=== PATIENT | male | born 1990 | race Two or more races ===

== ENCOUNTER 2022-09-07 10:54 | Inpatient (IN) | payer BC, MEDICAID ==
[2022-09-07] VITALS (22 sets, daily range): BP systolic 42–252; BP diastolic 24–183
[~2022-09-07] VITALS: Ht 177.8 cm; Wt 186.0 kg
[2022-09-07] MEDS ORDERED: VANCOMYCIN 1G PREMIX 200 ML IV ONE (11:30)
[2022-09-07] MEDS ORDERED: MIDAZOLAM HCL 100 MG in DEXT 5% WATER 80 ML IV ONE (11:30)
[2022-09-07] MEDS ORDERED: MIDAZOLAM HCL 2 MG/2 ML VIAL IV ONE (11:30)
[2022-09-07] MEDS ORDERED: SODIUM CHLORIDE 0.9% 1000ML BAG (SEPSIS BOLUS) IV ONE (11:30)
[2022-09-07] MEDS ORDERED: PIPERACILLIN/TAZ 3.375G PREMIX 50 ML IV ONE (11:30)
[2022-09-07 11:40] LABS: CHLORIDE 98 mEq/L (98-107)
[2022-09-07] MEDS ORDERED: MIDAZOLAM HCL 100 MG in SODIUM CHLORIDE 0.9% 80 ML IV PRN (11:45)
[2022-09-07 11:47] LABS: ETHANOL BLOOD 95 mg/dL
[2022-09-07 11:50] LABS: BG BASE EXCESS -14.2 mmol/L (-2.0-2.0); BG CARBOXYHEMOGLOBIN 0.7 % (0.5-1.5); BG DEOXYHEMOGLOBIN 7.2 % (0.0-5.0); BG FRACTION INSPIRED OXYGEN 100; BG HCO3 ACT 21.4 mmol/L (22.0-26.0); BG METHEMOGLOBIN 0.8 % (0.0-1.5); BG OXYGEN SATURATION 92.7 % (92.0-98.5); BG OXYHEMOGLOBIN 91.3 % (94.0-97.0); BG PCO2 96.4 mmHg (35.0-45.0); BG PH 6.964 (7.350-7.450); BG PO2 88.3 mmHg (75.0-100.0); BG SAMPLE SITE RIGHT BRACHIAL; BG VENT MODE VENT - AC
[2022-09-07 11:58] LABS: COLOR URINE YELLOW (YELLOW)
[2022-09-07 11:59] LABS: *AMPHETAMINES SCREEN URINE NEGATIVE (NEGATIVE); *BARBITURATES SCREEN URINE NEGATIVE (NEGATIVE); *BENZODIAZEPINES SCREEN URINE NEGATIVE (NEGATIVE); *COCAINE SCREEN URINE NEGATIVE (NEGATIVE); CANNABINOID URINE SCREEN PRESUMTIVE POSITIVE (NEGATIVE); CLARITY URINE CLEAR (CLEAR); KETONES URINE NEGATIVE (NEGATIVE); METHADONE URINE SCREEN NEGATIVE (NEGATIVE); OPIATES URINE SCREEN NEGATIVE (NEGATIVE); PHENCYCLIDINE URINE SCREEN NEGATIVE (NEGATIVE); PROTEIN URINE 3+ (NEGATIVE)
[2022-09-07 12:00] LABS: LEUKOCYTE ESTERASE URINE 1+ (NEGATIVE); NITRITE URINE NEGATIVE (NEGATIVE); OCCULT BLOOD URINE 1+ (NEGATIVE); UROBILINOGEN URINE 0.2 E.U./dL (0.2-1.0)
[2022-09-07 12:16] LABS: BASOPHILS % 0.1 % (0.0-2.0); EOSINOPHILS % 0.1 % (0.0-5.0); LYMPHOCYTES % 9.6 % (20.0-50.0); MEAN CORPUSCULAR VOLUME 89.7 fL (80.0-94.0); MONOCYTES % 3.2 % (2.0-8.0); RED CELL DISTRIBUTION WIDTH 18.7 % (11.6-14.6)
[2022-09-07 12:25] LABS: HEMATOCRIT. 66.4 % (42.0-52.0)
[2022-09-07] MEDS ORDERED: ONDANSETRON HCL 4MG/2ML INJ IV PRN (12:30)
[2022-09-07] MEDS ORDERED: ACETAMINOPHEN 325MG TABLET PO PRN (12:30)
[2022-09-07] MEDS ORDERED: SODIUM CHLORIDE 0.9% 1,000 ML IV SCH (12:30)
[2022-09-07 12:40] LABS: PROTHROMBIN TIME 11.2 sec (9.6-11.0)
[2022-09-07 12:56] LABS: MEAN PLATELET VOLUME 8.8 fl (7.4-10.4); PLATELET 197 x1000/uL (130-400)
[2022-09-07] MEDS ORDERED: PROPOFOL 10MG/ML 100ML 100 ML IV PRN (13:45)
[2022-09-07] MEDS ORDERED: NOREPINEPHRINE 32 MG in DEXT 5% WATER 218 ML IV PRN (14:15)
[2022-09-07 14:55] LABS: CREATINE KINASE 1444 IU/L (39-308)
[2022-09-07] MEDS: NOREPINEPHRINE 32 MG in DEXT 5% WATER 218 ML IV PRN (15:10)
[2022-09-07] MEDS: FENTANYL 2500MCG/250ML PMX 250 ML IV PRN (15:13)
[2022-09-07 16:08] LABS: BG BASE EXCESS -11.2 mmol/L (-2.0-2.0); BG CARBOXYHEMOGLOBIN 1.1 % (0.5-1.5); BG DEOXYHEMOGLOBIN 23.6 % (0.0-5.0); BG FRACTION INSPIRED OXYGEN 100; BG HCO3 ACT 17.1 mmol/L (22.0-26.0); BG METHEMOGLOBIN 0.4 % (0.0-1.5); BG OXYHEMOGLOBIN 74.9 % (94.0-97.0); BG PCO2 46.3 mmHg (35.0-45.0); BG PH 7.185 (7.350-7.450); BG PO2 56.5 mmHg (75.0-100.0); BG SAMPLE SITE LEFT FEMORAL; BG TOTAL HEMOGLOBIN 22.3 g/dL (12.0-18.0); BG VENT MODE VENT - AC
[2022-09-07] MEDS ORDERED: SODIUM BICARBONATE 8.4% 1 MEQ/ML 50ML SYR IV NR ×2 (17:30→20:45)
[2022-09-07] MEDS ORDERED: EPINEPHRINE 10 MG in SODIUM CHLORIDE 0.9% 240 ML IV PRN (17:30)
[2022-09-07] MEDS ORDERED: IPRATROPIUM/ALBUTEROL 0.5-3(2.5)MG/3ML NEB HHN SCH (18:00)
[2022-09-07] MEDS ORDERED: PIPERACILLIN/TAZOBACTAM 3.375 G in DEXTROSE 5% WATER 50 ML IV SCH (18:00)
[2022-09-07 18:26] LABS: BASOPHILS % 0.2 % (0.0-2.0); EOSINOPHILS % 0.1 % (0.0-5.0); HEMOGLOBIN. 20.2 g/dL (14.0-18.0); LYMPHOCYTES % 12.2 % (20.0-50.0); MEAN CORPUSCULAR HEMOGLOBIN 26.7 pg (28.0-32.0); MEAN CORPUSCULAR VOLUME 89.6 fL (80.0-94.0); MONOCYTES % 5.5 % (2.0-8.0); RED BLOOD CELL COUNT 7.59 mill/uL (4.7-6.1); RED CELL DISTRIBUTION WIDTH 18.1 % (11.6-14.6)
[2022-09-07 18:36] LABS: CHLORIDE 102 mEq/L (98-107)
[2022-09-07 18:39] LABS: HEMATOCRIT. 67.9 % (42.0-52.0)
[2022-09-07 19:09] LABS: BG BASE EXCESS -7.9 mmol/L (-2.0-2.0); BG CARBOXYHEMOGLOBIN 0.6 % (0.5-1.5); BG DEOXYHEMOGLOBIN 9.3 % (0.0-5.0); BG FRACTION INSPIRED OXYGEN 100; BG HCO3 ACT 20.3 mmol/L (22.0-26.0); BG METHEMOGLOBIN 0.6 % (0.0-1.5); BG OXYGEN SATURATION 90.6 % (92.0-98.5); BG OXYHEMOGLOBIN 89.5 % (94.0-97.0); BG PCO2 50.6 mmHg (35.0-45.0); BG PH 7.222 (7.350-7.450); BG SAMPLE SITE RIGHT BRACHIAL; BG TOTAL HEMOGLOBIN 22.4 g/dL (12.0-18.0); BG VENT MODE VENT - AC
[2022-09-07] MEDS: IPRATROPIUM/ALBUTEROL 0.5-3(2.5)MG/3ML NEB HHN SCH (20:31)
[2022-09-07] MEDS ORDERED: INSULIN REGULAR (HUMULIN R) 300UNITS/3ML VIAL IV NR (20:45)
[2022-09-07] MEDS ORDERED: DEXTROSE 50% WATER 50ML SYRINGE IV NR (20:45)
[2022-09-07] MEDS ORDERED: CALCIUM CHLORIDE 1,000 MG in DEXT 5% WATER 90 ML IV NR (20:45)
[2022-09-07 20:46] LABS: MEAN PLATELET VOLUME 9.2 fl (7.4-10.4); PLATELET 152 x1000/uL (130-400)
[2022-09-07] MEDS: PIPERACILLIN/TAZOBACTAM 3.375 G in DEXTROSE 5% WATER 50 ML IV SCH (21:32)
[2022-09-07] MEDS: ACETAMINOPHEN 650MG SUPP PR PRN (21:34)
[2022-09-07] MEDS: DEXT 5%/0.9% NACL 1,000 ML IV SCH (22:51)
[2022-09-08] VITALS (64 sets, daily range): BP systolic 118–178; BP diastolic 56–121
[2022-09-08] MEDS: IPRATROPIUM/ALBUTEROL 0.5-3(2.5)MG/3ML NEB HHN SCH ×6 (00:21→20:45)
[2022-09-08] MEDS ORDERED: SODIUM BICARBONATE 8.4% 1 MEQ/ML 50ML SYR IV NR (03:45)
[2022-09-08] MEDS ORDERED: CALCIUM CHLORIDE 1,000 MG in DEXT 5% WATER 90 ML IV NR (05:00)
[2022-09-08 06:05] LABS: HEMOGLOBIN. 19.7 g/dL (14.0-18.0); MEAN CORPUSCULAR HEMOGLOBIN 27.1 pg (28.0-32.0); MEAN PLATELET VOLUME 9.4 fl (7.4-10.4); PLATELET 109 x1000/uL (130-400); RED BLOOD CELL COUNT 7.26 mill/uL (4.7-6.1); RED CELL DISTRIBUTION WIDTH 18.1 % (11.6-14.6)
[2022-09-08 06:11] LABS: CHLORIDE 100 mEq/L (98-107)
[2022-09-08 06:22] LABS: HEMATOCRIT. 62.4 % (42.0-52.0)
[2022-09-08] MEDS: PIPERACILLIN/TAZOBACTAM 3.375 G in DEXTROSE 5% WATER 50 ML IV SCH ×3 (06:40→22:13)
[2022-09-08] MEDS: NOREPINEPHRINE 32 MG in DEXT 5% WATER 218 ML IV PRN (06:42)
[2022-09-08 09:37] LABS: BG BASE EXCESS -3.3 mmol/L (-2.0-2.0); BG CARBOXYHEMOGLOBIN 0.3 % (0.5-1.5); BG DEOXYHEMOGLOBIN 3.1 % (0.0-5.0); BG FRACTION INSPIRED OXYGEN 100; BG HCO3 ACT 23.2 mmol/L (22.0-26.0); BG METHEMOGLOBIN 0.7 % (0.0-1.5); BG OXYGEN SATURATION 96.9 % (92.0-98.5); BG OXYHEMOGLOBIN 95.9 % (94.0-97.0); BG SAMPLE SITE RIGHT RADIAL; BG TOTAL HEMOGLOBIN 21.5 g/dL (12.0-18.0); BG VENT MODE VENT - AC
[2022-09-08] MEDS: THIAMINE HCL 100MG TABLET PO SCH (09:51)
[2022-09-08] MEDS: PANTOPRAZOLE SODIUM 40 MG/VIAL IV SCH (09:51)
[2022-09-08] MEDS: FOLIC ACID 1MG TABLET PO SCH (09:52)
[2022-09-08] MEDS: DEXT 5%/0.9% NACL 1,000 ML IV SCH ×3 (09:52→23:29)
[2022-09-08] MEDS: MULTIVITAMINS,THER W-MINERALS TABLET PO SCH (09:52)
[2022-09-08] MEDS ORDERED: BENA-8 MT (09:55)
[2022-09-08 10:04] LABS: PLATELET ESTIMATE DECREASED
[2022-09-08] MEDS: AMLODIPINE 10MG TABLET PO SCH (11:34)
[2022-09-08] MEDS ORDERED: VANCOMYCIN 2,000 MG in DEXT 5% WATER 500 ML IV NR (12:00)
[2022-09-08] MEDS ORDERED: LIDOCAINE HCL/PF 1% 10 MG/ML 5ML VIAL ONE (13:00)
[2022-09-08] MEDS ORDERED: HEPARIN 1000 UNITS/ML 10ML ONE (13:01)
[2022-09-08 13:14] LABS: FIBRINOGEN 582 mg/dL (200-400)
[2022-09-08] MEDS: LACTULOSE 20G/30ML UDC PO SCH ×2 (13:21→22:13)
[2022-09-08 13:30] LABS: PHOSPHORUS 5.3 mg/dL (2.5-4.9)
[2022-09-08 13:50] LABS: HEPATITIS B SURFACE ANTIGEN NEGATIVE
[2022-09-08 15:37] LABS: D-DIMER > 35.20 mg/L FEU (<0.50)
[2022-09-08] MEDS: ENOXAPARIN 150MG/ML SYR SUBCUT SCH (17:21)
[2022-09-08] MEDS: ACETAMINOPHEN 650MG SUPP PR PRN (20:45)
[2022-09-08] MEDS: FENTANYL 2500MCG/250ML PMX 250 ML IV PRN (23:23)
[2022-09-09] VITALS (51 sets, daily range): BP systolic 125–187; BP diastolic 60–170
[2022-09-09] MEDS: IPRATROPIUM/ALBUTEROL 0.5-3(2.5)MG/3ML NEB HHN SCH ×6 (00:46→20:26)
[2022-09-09] MEDS: ACETAMINOPHEN 650MG SUPP PR PRN (03:32)
[2022-09-09 05:36] LABS: BASOPHILS % 0.2 % (0.0-2.0); EOSINOPHILS % 0.1 % (0.0-5.0); HEMATOCRIT. 58.2 % (42.0-52.0); HEMOGLOBIN. 18.4 g/dL (14.0-18.0); LYMPHOCYTES % 7.2 % (20.0-50.0); MEAN CORPUSCULAR HEMOGLOBIN 27.1 pg (28.0-32.0); MEAN CORPUSCULAR VOLUME 85.6 fL (80.0-94.0); MONOCYTES % 2.9 % (2.0-8.0); NEUTROPHILS % 89.6 % (40.0-76.0); PLATELET 73 x1000/uL (130-400); RED CELL DISTRIBUTION WIDTH 17.6 % (11.6-14.6)
[2022-09-09] MEDS: PIPERACILLIN/TAZOBACTAM 3.375 G in DEXTROSE 5% WATER 50 ML IV SCH ×3 (06:03→22:43)
[2022-09-09] MEDS: LACTULOSE 20G/30ML UDC PO SCH ×3 (06:03→22:43)
[2022-09-09 06:04] LABS: CHLORIDE 102 mEq/L (98-107)
[2022-09-09 06:11] LABS: PHOSPHORUS 5.6 mg/dL (2.5-4.9)
[2022-09-09 08:07] LABS: BG BASE EXCESS -1.7 mmol/L (-2.0-2.0); BG CARBOXYHEMOGLOBIN 0.3 % (0.5-1.5); BG DEOXYHEMOGLOBIN 9.9 % (0.0-5.0); BG FRACTION INSPIRED OXYGEN 100; BG METHEMOGLOBIN 0.4 % (0.0-1.5); BG OXYHEMOGLOBIN 89.4 % (94.0-97.0); BG PCO2 48.6 mmHg (35.0-45.0); BG PH 7.329 (7.350-7.450); BG PO2 60.9 mmHg (75.0-100.0); BG SAMPLE SITE LEFT RADIAL; BG TOTAL HEMOGLOBIN 20.4 g/dL (12.0-18.0); BG VENT MODE VENT - AC
[2022-09-09] MEDS: MULTIVITAMINS,THER W-MINERALS TABLET PO SCH (09:43)
[2022-09-09] MEDS: THIAMINE HCL 100MG TABLET PO SCH (09:43)
[2022-09-09] MEDS: FOLIC ACID 1MG TABLET PO SCH (09:43)
[2022-09-09] MEDS: PANTOPRAZOLE SODIUM 40 MG/VIAL IV SCH (09:43)
[2022-09-09] MEDS: AMLODIPINE 10MG TABLET PO SCH (09:43)
[2022-09-09] MEDS: DEXT 5%/0.9% NACL 1,000 ML IV SCH ×2 (12:45→23:04)
[2022-09-09] MEDS: ENOXAPARIN 150MG/ML SYR SUBCUT SCH (17:27)
[2022-09-09] MEDS: ACETAMINOPHEN 650MG/20.3ML UDC PO PRN (19:43)
[2022-09-09] MEDS ORDERED: HEPARIN SODIUM 1,000 UNIT/1ML VIAL IV NR (22:00)
[2022-09-10] VITALS (94 sets, daily range): BP systolic 120–196; BP diastolic 56–147
[2022-09-10] MEDS: IPRATROPIUM/ALBUTEROL 0.5-3(2.5)MG/3ML NEB HHN SCH ×7 (00:39→23:36)
[2022-09-10] MEDS: FENTANYL 2500MCG/250ML PMX 250 ML IV PRN ×2 (01:44→20:07)
[2022-09-10] MEDS ORDERED: CLONIDINE 0.1MG TABLET PO PRN (03:45)
[2022-09-10] MEDS: MIDAZOLAM HCL 100 MG in SODIUM CHLORIDE 0.9% 80 ML IV PRN ×3 (05:07→21:11)
[2022-09-10] MEDS: ACETAMINOPHEN 650MG/20.3ML UDC PO PRN ×3 (05:40→19:58)
[2022-09-10] MEDS: LACTULOSE 20G/30ML UDC PO SCH ×3 (05:40→21:54)
[2022-09-10] MEDS: NICARDIPINE 100 MG in SODIUM CHLORIDE 0.9% 60 ML IV PRN ×2 (05:42→21:11)
[2022-09-10] MEDS: PIPERACILLIN/TAZOBACTAM 3.375 G in DEXTROSE 5% WATER 50 ML IV SCH (05:43)
[2022-09-10 06:11] LABS: HEMATOCRIT. 58.8 % (42.0-52.0); HEMOGLOBIN. 18.5 g/dL (14.0-18.0); MEAN CORPUSCULAR HEMOGLOBIN 27.1 pg (28.0-32.0); MEAN CORPUSCULAR VOLUME 86.1 fL (80.0-94.0); RED BLOOD CELL COUNT 6.82 mill/uL (4.7-6.1); RED CELL DISTRIBUTION WIDTH 17.7 % (11.6-14.6)
[2022-09-10 06:46] LABS: PLATELET 70 x1000/uL (130-400)
[2022-09-10 06:50] LABS: PHOSPHORUS 4.3 mg/dL (2.5-4.9)
[2022-09-10] MEDS ORDERED: CEFEPIME 1,000 MG in DEXTROSE 5% WATER 50 ML IV SCH (07:30)
[2022-09-10] MEDS ORDERED: METRONIDAZOLE 500 MG PREMIX 100 ML IV SCH (08:00)
[2022-09-10 08:11] LABS: BG CARBOXYHEMOGLOBIN 0.3 % (0.5-1.5); BG FRACTION INSPIRED OXYGEN 100; BG HCO3 ACT 25.8 mmol/L (22.0-26.0); BG METHEMOGLOBIN 0.4 % (0.0-1.5); BG OXYGEN SATURATION 87.9 % (92.0-98.5); BG OXYHEMOGLOBIN 87.3 % (94.0-97.0); BG PCO2 49.3 mmHg (35.0-45.0); BG PH 7.336 (7.350-7.450); BG PO2 57.5 mmHg (75.0-100.0); BG SAMPLE SITE RIGHT RADIAL; BG TOTAL HEMOGLOBIN 19.9 g/dL (12.0-18.0); BG VENT MODE VENT - AC
[2022-09-10] MEDS: AMLODIPINE 10MG TABLET PO SCH (09:00)
[2022-09-10 09:02] LABS: PLATELET ESTIMATE MARKEDLY DECREASED
[2022-09-10] MEDS ORDERED: HYDRALAZINE 20MG/ML VIAL IV PRN (09:15)
[2022-09-10] MEDS: DEXT 5%/0.9% NACL 1,000 ML IV SCH (09:41)
[2022-09-10] MEDS: FOLIC ACID 1MG TABLET PO SCH (11:59)
[2022-09-10] MEDS: PANTOPRAZOLE SODIUM 40 MG/VIAL IV SCH (11:59)
[2022-09-10] MEDS: MULTIVITAMINS,THER W-MINERALS TABLET PO SCH (11:59)
[2022-09-10] MEDS: THIAMINE HCL 100MG TABLET PO SCH (11:59)
[2022-09-10] MEDS: HYDRALAZINE HCL 25MG TABLET PO SCH ×2 (13:09→21:54)
[2022-09-10] MEDS ORDERED: LIDOCAINE HCL/PF 1% 10 MG/ML 5ML VIAL ONE (13:35)
[2022-09-10] MEDS ORDERED: VANCOMYCIN 1G PREMIX 200 ML IV SCH (14:00)
[2022-09-10] MEDS: ENOXAPARIN 150MG/ML SYR SUBCUT SCH (15:01)
[2022-09-10] MEDS ORDERED: ALTEPLASE 2MG/VIAL ITC NR (16:00)
[2022-09-10] MEDS: MEROPENEM 1,000 MG in SODIUM CHLORIDE 0.9% 100 ML IV SCH (17:10)
[2022-09-11] VITALS (86 sets, daily range): BP systolic 117–150; BP diastolic 51–84
[2022-09-11] MEDS: IPRATROPIUM/ALBUTEROL 0.5-3(2.5)MG/3ML NEB HHN SCH ×5 (03:46→19:51)
[2022-09-11 05:16] LABS: HEMOGLOBIN. 17.4 g/dL (14.0-18.0); MEAN CORPUSCULAR HEMOGLOBIN 26.9 pg (28.0-32.0); MEAN CORPUSCULAR VOLUME 86.6 fL (80.0-94.0); MEAN PLATELET VOLUME 10.6 fl (7.4-10.4); PLATELET 68 x1000/uL (130-400); RED BLOOD CELL COUNT 6.46 mill/uL (4.7-6.1); RED CELL DISTRIBUTION WIDTH 17.9 % (11.6-14.6)
[2022-09-11] MEDS: HYDRALAZINE HCL 25MG TABLET PO SCH ×3 (06:15→21:52)
[2022-09-11] MEDS: LACTULOSE 20G/30ML UDC PO SCH ×3 (06:15→21:53)
[2022-09-11] MEDS: ACETAMINOPHEN 650MG/20.3ML UDC PO PRN ×2 (06:15→12:15)
[2022-09-11 07:50] LABS: PLATELET ESTIMATE DECREASED
[2022-09-11 08:34] LABS: BG CARBOXYHEMOGLOBIN 0.2 % (0.5-1.5); BG DEOXYHEMOGLOBIN 7.5 % (0.0-5.0); BG FRACTION INSPIRED OXYGEN 100; BG HCO3 ACT 24.1 mmol/L (22.0-26.0); BG METHEMOGLOBIN 0.5 % (0.0-1.5); BG OXYGEN SATURATION 92.4 % (92.0-98.5); BG OXYHEMOGLOBIN 91.8 % (94.0-97.0); BG PCO2 50.2 mmHg (35.0-45.0); BG PO2 70.2 mmHg (75.0-100.0); BG SAMPLE SITE RIGHT RADIAL; BG TOTAL HEMOGLOBIN 18.8 g/dL (12.0-18.0); BG VENT MODE VENT PRVC
[2022-09-11] MEDS: MULTIVITAMINS,THER W-MINERALS TABLET PO SCH (08:50)
[2022-09-11] MEDS: MIDAZOLAM HCL 100 MG in SODIUM CHLORIDE 0.9% 80 ML IV PRN (08:50)
[2022-09-11] MEDS: AMLODIPINE 10MG TABLET PO SCH (08:50)
[2022-09-11] MEDS: FOLIC ACID 1MG TABLET PO SCH (08:50)
[2022-09-11] MEDS: THIAMINE HCL 100MG TABLET PO SCH (08:50)
[2022-09-11] MEDS: PANTOPRAZOLE SODIUM 40 MG/VIAL IV SCH (08:50)
[2022-09-11] MEDS ORDERED: HEPARIN SODIUM 1,000 UNIT/1ML VIAL IV NR (15:30)
[2022-09-11] MEDS: ENOXAPARIN 150MG/ML SYR SUBCUT SCH (16:00)
[2022-09-11] MEDS: MEROPENEM 1,000 MG in SODIUM CHLORIDE 0.9% 100 ML IV SCH (16:23)
[2022-09-11] MEDS: FENTANYL 2500MCG/250ML PMX 250 ML IV PRN (21:53)
[2022-09-12] VITALS (51 sets, daily range): BP systolic 105–160; BP diastolic 50–81
[2022-09-12] MEDS: MIDAZOLAM HCL 100 MG in SODIUM CHLORIDE 0.9% 80 ML IV PRN (02:24)
[2022-09-12] MEDS: IPRATROPIUM/ALBUTEROL 0.5-3(2.5)MG/3ML NEB HHN SCH ×7 (04:00→23:40)
[2022-09-12 05:41] LABS: HEMATOCRIT. 55.8 % (42.0-52.0); HEMOGLOBIN. 17.4 g/dL (14.0-18.0); MEAN CORPUSCULAR VOLUME 86.2 fL (80.0-94.0); MEAN PLATELET VOLUME 11.4 fl (7.4-10.4); PLATELET 91 x1000/uL (130-400); RED BLOOD CELL COUNT 6.47 mill/uL (4.7-6.1); RED CELL DISTRIBUTION WIDTH 17.7 % (11.6-14.6)
[2022-09-12] MEDS: LACTULOSE 20G/30ML UDC PO SCH (05:53)
[2022-09-12] MEDS: HYDRALAZINE HCL 25MG TABLET PO SCH ×3 (05:53→22:00)
[2022-09-12 06:23] LABS: PHOSPHORUS 7.6 mg/dL (2.5-4.9)
[2022-09-12 07:59] LABS: PLATELET ESTIMATE DECREASED
[2022-09-12] MEDS: THIAMINE HCL 100MG TABLET PO SCH (08:36)
[2022-09-12] MEDS: MULTIVITAMINS,THER W-MINERALS TABLET PO SCH (08:36)
[2022-09-12] MEDS: PANTOPRAZOLE SODIUM 40 MG/VIAL IV SCH (08:36)
[2022-09-12] MEDS: FOLIC ACID 1MG TABLET PO SCH (08:36)
[2022-09-12] MEDS: AMLODIPINE 10MG TABLET PO SCH (08:37)
[2022-09-12 09:24] LABS: BG CARBOXYHEMOGLOBIN 0.3 % (0.5-1.5); BG DEOXYHEMOGLOBIN 6.2 % (0.0-5.0); BG FRACTION INSPIRED OXYGEN 100; BG HCO3 ACT 20.9 mmol/L (22.0-26.0); BG METHEMOGLOBIN 0.6 % (0.0-1.5); BG OXYGEN SATURATION 93.7 % (92.0-98.5); BG OXYHEMOGLOBIN 92.9 % (94.0-97.0); BG PCO2 50.1 mmHg (35.0-45.0); BG PH 7.238 (7.350-7.450); BG PO2 77.9 mmHg (75.0-100.0); BG SAMPLE SITE RIGHT RADIAL; BG TOTAL HEMOGLOBIN 18.8 g/dL (12.0-18.0); BG VENT MODE VENT - PRVC
[2022-09-12] MEDS ORDERED: HEPARIN SODIUM 1,000 UNIT/1ML VIAL IV NR (10:00)
[2022-09-12] MEDS: PREDNISONE 20MG TABLET PO SCH (12:20)
[2022-09-12] MEDS ORDERED: VANCOMYCIN 1.25GM PMX (XELLIA) 250 ML IV NR (14:00)
[2022-09-12] MEDS ORDERED: FENTANYL 2500MCG/250ML PMX 250 ML IV PRN (15:00)
[2022-09-12] MEDS: MEROPENEM 1,000 MG in SODIUM CHLORIDE 0.9% 100 ML IV SCH (15:14)
[2022-09-12] MEDS: ENOXAPARIN 150MG/ML SYR SUBCUT SCH (17:32)
[2022-09-12] MEDS: ACETAMINOPHEN 650MG/20.3ML UDC PO PRN (19:04)
[2022-09-12] MEDS ORDERED: MIDAZOLAM 100MG/100ML PMX 100 ML IV PRN (19:15)
[2022-09-12] MEDS ORDERED: MIDAZOLAM HCL 100 MG in SODIUM CHLORIDE 0.9% 100 ML IV PRN (19:30)
[2022-09-12] MEDS ORDERED: LACTULOSE 20G/30ML UDC PO SCH (21:00)
[2022-09-13] VITALS (77 sets, daily range): BP systolic 106–141; BP diastolic 52–83
[2022-09-13] MEDS: ACETAMINOPHEN 650MG SUPP PR PRN (00:21)
[2022-09-13] MEDS: SODIUM CHLORIDE 3% FOR INH 4ML UD NEB INH SCH ×3 (00:53→16:44)
[2022-09-13] MEDS: IPRATROPIUM/ALBUTEROL 0.5-3(2.5)MG/3ML NEB HHN SCH ×5 (03:35→21:08)
[2022-09-13] MEDS: ACETAMINOPHEN 650MG/20.3ML UDC PO PRN ×3 (04:24→21:47)
[2022-09-13 05:51] LABS: HEMATOCRIT. 51.6 % (42.0-52.0); HEMOGLOBIN. 16.3 g/dL (14.0-18.0); MEAN CORPUSCULAR HEMOGLOBIN 27.2 pg (28.0-32.0); MEAN CORPUSCULAR VOLUME 86.4 fL (80.0-94.0); MEAN PLATELET VOLUME 11.5 fl (7.4-10.4); PLATELET 119 x1000/uL (130-400); RED BLOOD CELL COUNT 5.97 mill/uL (4.7-6.1); RED CELL DISTRIBUTION WIDTH 17.9 % (11.6-14.6)
[2022-09-13 05:59] LABS: CHLORIDE 102 mEq/L (98-107)
[2022-09-13] MEDS: HYDRALAZINE HCL 25MG TABLET PO SCH ×3 (06:00→21:47)
[2022-09-13 06:07] LABS: PHOSPHORUS 7.6 mg/dL (2.5-4.9)
[2022-09-13 07:11] LABS: PLATELET ESTIMATE DECREASED
[2022-09-13 07:25] LABS: BG BASE EXCESS -5.3 mmol/L (-2.0-2.0); BG CARBOXYHEMOGLOBIN 0.7 % (0.5-1.5); BG DEOXYHEMOGLOBIN 3.3 % (0.0-5.0); BG HCO3 ACT 23.4 mmol/L (22.0-26.0); BG METHEMOGLOBIN 0.5 % (0.0-1.5); BG OXYGEN SATURATION 96.7 % (92.0-98.5); BG OXYHEMOGLOBIN 95.5 % (94.0-97.0); BG PCO2 56.8 mmHg (35.0-45.0); BG PH 7.232 (7.350-7.450); BG PO2 95.2 mmHg (75.0-100.0); BG SAMPLE SITE RIGHT RADIAL; BG TOTAL HEMOGLOBIN 17.7 g/dL (12.0-18.0); BG VENT MODE VENT- PRVC
[2022-09-13] MEDS: FOLIC ACID 1MG TABLET PO SCH (08:22)
[2022-09-13] MEDS: PREDNISONE 20MG TABLET PO SCH (08:22)
[2022-09-13] MEDS: MULTIVITAMINS,THER W-MINERALS TABLET PO SCH (08:22)
[2022-09-13] MEDS: AMLODIPINE 10MG TABLET PO SCH (08:22)
[2022-09-13] MEDS: PANTOPRAZOLE SODIUM 40 MG/VIAL IV SCH (08:22)
[2022-09-13] MEDS: THIAMINE HCL 100MG TABLET PO SCH (08:22)
[2022-09-13] MEDS: LACTULOSE 20G/30ML UDC PO SCH ×2 (14:19→16:24)
[2022-09-13] MEDS: MEROPENEM 1,000 MG in SODIUM CHLORIDE 0.9% 100 ML IV SCH (14:19)
[2022-09-13 14:51] LABS: BG BASE EXCESS -4.4 mmol/L (-2.0-2.0); BG CARBOXYHEMOGLOBIN 0.3 % (0.5-1.5); BG DEOXYHEMOGLOBIN 0.6 % (0.0-5.0); BG FRACTION INSPIRED OXYGEN 100; BG METHEMOGLOBIN 0.5 % (0.0-1.5); BG OXYGEN SATURATION 99.4 % (92.0-98.5); BG OXYHEMOGLOBIN 98.6 % (94.0-97.0); BG PCO2 44.8 mmHg (35.0-45.0); BG PH 7.309 (7.350-7.450); BG PO2 213.1 mmHg (75.0-100.0); BG SAMPLE SITE LEFT RADIAL; BG TOTAL HEMOGLOBIN 18.5 g/dL (12.0-18.0); BG TOTAL RESPIRATORY RATE 44 b/min; BG VENT MODE PRVC
[2022-09-13] MEDS: ENOXAPARIN 150MG/ML SYR SUBCUT SCH (16:25)
[2022-09-14] VITALS (76 sets, daily range): BP systolic 100–137; BP diastolic 41–87
[2022-09-14] MEDS: IPRATROPIUM/ALBUTEROL 0.5-3(2.5)MG/3ML NEB HHN SCH ×6 (00:53→19:55)
[2022-09-14 05:47] LABS: HEMATOCRIT. 53.3 % (42.0-52.0); HEMOGLOBIN. 16.9 g/dL (14.0-18.0); MEAN CORPUSCULAR HEMOGLOBIN 27.4 pg (28.0-32.0); MEAN CORPUSCULAR VOLUME 86.3 fL (80.0-94.0); MEAN PLATELET VOLUME 11.3 fl (7.4-10.4); PLATELET 152 x1000/uL (130-400); RED BLOOD CELL COUNT 6.17 mill/uL (4.7-6.1); RED CELL DISTRIBUTION WIDTH 17.3 % (11.6-14.6)
[2022-09-14] MEDS: HYDRALAZINE HCL 25MG TABLET PO SCH ×3 (06:26→21:26)
[2022-09-14 06:38] LABS: CHLORIDE 100 mEq/L (98-107)
[2022-09-14 06:55] LABS: PHOSPHORUS 7.6 mg/dL (2.5-4.9)
[2022-09-14 08:35] LABS: BG BASE EXCESS -4.7 mmol/L (-2.0-2.0); BG CARBOXYHEMOGLOBIN 0.4 % (0.5-1.5); BG DEOXYHEMOGLOBIN 1.7 % (0.0-5.0); BG FRACTION INSPIRED OXYGEN 100; BG HCO3 ACT 21.9 mmol/L (22.0-26.0); BG METHEMOGLOBIN 0.6 % (0.0-1.5); BG OXYGEN SATURATION 98.3 % (92.0-98.5); BG OXYHEMOGLOBIN 97.3 % (94.0-97.0); BG PCO2 45.6 mmHg (35.0-45.0); BG PH 7.299 (7.350-7.450); BG PO2 120.3 mmHg (75.0-100.0); BG SAMPLE SITE LEFT RADIAL; BG TOTAL HEMOGLOBIN 17.9 g/dL (12.0-18.0); BG VENT MODE PRVC
[2022-09-14] MEDS: FOLIC ACID 1MG TABLET PO SCH (09:00)
[2022-09-14] MEDS: PANTOPRAZOLE SODIUM 40 MG/VIAL IV SCH (09:00)
[2022-09-14] MEDS: AMLODIPINE 10MG TABLET PO SCH (09:01)
[2022-09-14] MEDS: MULTIVITAMINS,THER W-MINERALS TABLET PO SCH (09:01)
[2022-09-14] MEDS: THIAMINE HCL 100MG TABLET PO SCH (09:01)
[2022-09-14] MEDS: PREDNISONE 20MG TABLET PO SCH (09:01)
[2022-09-14] MEDS: LACTULOSE 20G/30ML UDC PO SCH ×2 (09:09→14:31)
[2022-09-14 09:33] LABS: PLATELET ESTIMATE NORMAL
[2022-09-14 10:42] LABS: BG BASE EXCESS -4.3 mmol/L (-2.0-2.0); BG CARBOXYHEMOGLOBIN 0.3 % (0.5-1.5); BG DEOXYHEMOGLOBIN 1.9 % (0.0-5.0); BG HCO3 ACT 21.8 mmol/L (22.0-26.0); BG METHEMOGLOBIN 0.6 % (0.0-1.5); BG OXYGEN SATURATION 98.1 % (92.0-98.5); BG OXYHEMOGLOBIN 97.2 % (94.0-97.0); BG PCO2 43.4 mmHg (35.0-45.0); BG PH 7.318 (7.350-7.450); BG SAMPLE SITE RIGHT RADIAL; BG TOTAL HEMOGLOBIN 18.3 g/dL (12.0-18.0); BG VENT MODE VENT- PRVC
[2022-09-14] MEDS ORDERED: BENA1TAB19 PO (13:40)
[2022-09-14] MEDS ORDERED: VANCOMYCIN 1.25GM PMX (XELLIA) 250 ML IV SCH (14:00)
[2022-09-14] MEDS: ACETAMINOPHEN 650MG/20.3ML UDC PO PRN ×2 (14:32→21:25)
[2022-09-14] MEDS: HYDRALAZINE 20MG/ML VIAL IV PRN (14:32)
[2022-09-15] VITALS (70 sets, daily range): BP systolic 104–139; BP diastolic 33–78
[2022-09-15] MEDS: IPRATROPIUM/ALBUTEROL 0.5-3(2.5)MG/3ML NEB HHN SCH ×6 (00:43→20:40)
[2022-09-15] MEDS: SODIUM CHLORIDE 3% FOR INH 4ML UD NEB INH SCH ×2 (00:43→09:05)
[2022-09-15 05:54] LABS: HEMATOCRIT. 54.2 % (42.0-52.0); HEMOGLOBIN. 16.6 g/dL (14.0-18.0); MEAN CORPUSCULAR HEMOGLOBIN 26.6 pg (28.0-32.0); MEAN CORPUSCULAR VOLUME 86.6 fL (80.0-94.0); MEAN PLATELET VOLUME 11.5 fl (7.4-10.4); PLATELET 166 x1000/uL (130-400); RED BLOOD CELL COUNT 6.25 mill/uL (4.7-6.1); RED CELL DISTRIBUTION WIDTH 17.4 % (11.6-14.6)
[2022-09-15 06:09] LABS: CHLORIDE 100 mEq/L (98-107)
[2022-09-15] MEDS: HYDRALAZINE HCL 25MG TABLET PO SCH ×3 (06:20→21:51)
[2022-09-15 07:03] LABS: CREATINE KINASE 5990 IU/L (39-308)
[2022-09-15 08:20] LABS: PLATELET ESTIMATE NORMAL
[2022-09-15] MEDS: MULTIVITAMINS,THER W-MINERALS TABLET PO SCH (08:54)
[2022-09-15] MEDS: SEVELAMER CARBONATE 800 MG TABLET PO SCH ×3 (08:54→17:21)
[2022-09-15] MEDS: LACTULOSE 20G/30ML UDC PO SCH ×3 (08:54→17:21)
[2022-09-15] MEDS: AMLODIPINE 10MG TABLET PO SCH (08:55)
[2022-09-15] MEDS: THIAMINE HCL 100MG TABLET PO SCH (08:55)
[2022-09-15] MEDS: FOLIC ACID 1MG TABLET PO SCH (08:55)
[2022-09-15] MEDS: PREDNISONE 20MG TABLET PO SCH (08:55)
[2022-09-15] MEDS: PANTOPRAZOLE SODIUM 40 MG/VIAL IV SCH (08:57)
[2022-09-15 09:30] LABS: PHOSPHORUS 15.9 mg/dL (2.5-4.9)
[2022-09-15] MEDS ORDERED: HEPARIN SODIUM 1,000 UNIT/1ML VIAL IV NR (12:15)
[2022-09-15] MEDS: ACETAMINOPHEN 650MG/20.3ML UDC PO PRN (13:45)
[2022-09-15] MEDS: MEROPENEM 1,000 MG in SODIUM CHLORIDE 0.9% 100 ML IV SCH (16:05)
[2022-09-15] MEDS: ENOXAPARIN 150MG/ML SYR SUBCUT SCH (16:06)
[2022-09-16] VITALS (46 sets, daily range): BP systolic 107–140; BP diastolic 42–77
[2022-09-16] MEDS: IPRATROPIUM/ALBUTEROL 0.5-3(2.5)MG/3ML NEB HHN SCH ×6 (00:43→20:45)
[2022-09-16] MEDS: ACETAMINOPHEN 650MG/20.3ML UDC PO PRN ×2 (03:28→20:39)
[2022-09-16] MEDS: HYDRALAZINE HCL 25MG TABLET PO SCH ×3 (05:43→20:40)
[2022-09-16 06:44] LABS: HEMATOCRIT. 49.7 % (42.0-52.0); HEMOGLOBIN. 15.8 g/dL (14.0-18.0); MEAN CORPUSCULAR HEMOGLOBIN 27.1 pg (28.0-32.0); MEAN CORPUSCULAR VOLUME 85.2 fL (80.0-94.0); MEAN PLATELET VOLUME 11.9 fl (7.4-10.4); PLATELET 184 x1000/uL (130-400); RED BLOOD CELL COUNT 5.83 mill/uL (4.7-6.1); RED CELL DISTRIBUTION WIDTH 17.4 % (11.6-14.6)
[2022-09-16 07:17] LABS: CHLORIDE 100 mEq/L (98-107)
[2022-09-16 07:40] LABS: CREATINE KINASE 3124 IU/L (39-308)
[2022-09-16 08:31] LABS: BG BASE EXCESS -3.9 mmol/L (-2.0-2.0); BG CARBOXYHEMOGLOBIN 0.1 % (0.5-1.5); BG DEOXYHEMOGLOBIN 0.7 % (0.0-5.0); BG FRACTION INSPIRED OXYGEN 90; BG HCO3 ACT 23.3 mmol/L (22.0-26.0); BG METHEMOGLOBIN 0.5 % (0.0-1.5); BG OXYGEN SATURATION 99.3 % (92.0-98.5); BG OXYHEMOGLOBIN 98.7 % (94.0-97.0); BG PCO2 50.1 mmHg (35.0-45.0); BG PH 7.286 (7.350-7.450); BG PO2 216.8 mmHg (75.0-100.0); BG SAMPLE SITE RIGHT RADIAL; BG VENT MODE VENT PRVC
[2022-09-16] MEDS: SODIUM CHLORIDE 3% FOR INH 4ML UD NEB INH SCH ×2 (08:56→14:00)
[2022-09-16] MEDS: LACTULOSE 20G/30ML UDC PO SCH ×3 (09:17→17:42)
[2022-09-16] MEDS: SEVELAMER CARBONATE 800 MG TABLET PO SCH ×3 (09:17→17:42)
[2022-09-16] MEDS: PANTOPRAZOLE SODIUM 40 MG/VIAL IV SCH (09:17)
[2022-09-16] MEDS: AMLODIPINE 10MG TABLET PO SCH (09:17)
[2022-09-16] MEDS: PREDNISONE 20MG TABLET PO SCH (09:17)
[2022-09-16] MEDS: MULTIVITAMINS,THER W-MINERALS TABLET PO SCH (09:18)
[2022-09-16] MEDS: FOLIC ACID 1MG TABLET PO SCH (09:18)
[2022-09-16] MEDS: THIAMINE HCL 100MG TABLET PO SCH (09:18)
[2022-09-16] MEDS ORDERED: HEPARIN SODIUM 1,000 UNIT/1ML VIAL IV NR (13:30)
[2022-09-16 14:36] LABS: PLATELET ESTIMATE NORMAL
[2022-09-16] MEDS: MEROPENEM 1,000 MG in SODIUM CHLORIDE 0.9% 100 ML IV SCH (17:42)
[2022-09-16] MEDS: ENOXAPARIN 150MG/ML SYR SUBCUT SCH (17:42)
[2022-09-16] MEDS ORDERED: VANCOMYCIN 1GM PMX (XELLIA) 200 ML IV NR (21:00)
[2022-09-16] MEDS ORDERED: MICAFUNGIN 100 MG in SODIUM CHLORIDE 0.9% 100 ML IV SCH (23:00)
[2022-09-17] VITALS (54 sets, daily range): BP systolic 64–140; BP diastolic 28–77
[2022-09-17] MEDS: IPRATROPIUM/ALBUTEROL 0.5-3(2.5)MG/3ML NEB HHN SCH ×5 (01:03→11:53)
[2022-09-17] MEDS: SODIUM CHLORIDE 3% FOR INH 4ML UD NEB INH SCH ×3 (01:03→10:00)
[2022-09-17] MEDS: ACETAMINOPHEN 650MG SUPP PR PRN (01:31)
[2022-09-17] MEDS: HYDRALAZINE HCL 25MG TABLET PO SCH ×2 (06:00→14:00)
[2022-09-17 06:14] LABS: CHLORIDE 99 mEq/L (98-107)
[2022-09-17 06:20] LABS: HEMATOCRIT. 52.1 % (42.0-52.0); HEMOGLOBIN. 16.3 g/dL (14.0-18.0); MEAN CORPUSCULAR HEMOGLOBIN 26.7 pg (28.0-32.0); MEAN CORPUSCULAR VOLUME 85.5 fL (80.0-94.0); MEAN PLATELET VOLUME 11.5 fl (7.4-10.4); PLATELET 212 x1000/uL (130-400); RED CELL DISTRIBUTION WIDTH 17.1 % (11.6-14.6)
[2022-09-17 06:32] LABS: CREATINE KINASE 1378 IU/L (39-308)
[2022-09-17] MEDS: THIAMINE HCL 100MG TABLET PO SCH (08:01)
[2022-09-17] MEDS: AMLODIPINE 10MG TABLET PO SCH (08:01)
[2022-09-17] MEDS: LACTULOSE 20G/30ML UDC PO SCH ×2 (08:01→13:23)
[2022-09-17] MEDS: PANTOPRAZOLE SODIUM 40 MG/VIAL IV SCH (08:01)
[2022-09-17] MEDS: FOLIC ACID 1MG TABLET PO SCH (08:01)
[2022-09-17] MEDS: PREDNISONE 20MG TABLET PO SCH (08:01)
[2022-09-17] MEDS: SEVELAMER CARBONATE 800 MG TABLET PO SCH ×2 (08:02→13:23)
[2022-09-17] MEDS: MULTIVITAMINS,THER W-MINERALS TABLET PO SCH (08:02)
[2022-09-17] MEDS: ACETAMINOPHEN 650MG/20.3ML UDC PO PRN ×2 (08:05→15:34)
[2022-09-17 09:11] LABS: BG BASE EXCESS -4.3 mmol/L (-2.0-2.0); BG CARBOXYHEMOGLOBIN 0.8 % (0.5-1.5); BG DEOXYHEMOGLOBIN 10.3 % (0.0-5.0); BG FRACTION INSPIRED OXYGEN 70; BG HCO3 ACT 23.8 mmol/L (22.0-26.0); BG METHEMOGLOBIN 0.3 % (0.0-1.5); BG OXYGEN SATURATION 89.6 % (92.0-98.5); BG OXYHEMOGLOBIN 88.6 % (94.0-97.0); BG PCO2 54.2 mmHg (35.0-45.0); BG PO2 65.4 mmHg (75.0-100.0); BG SAMPLE SITE RIGHT RADIAL; BG VENT MODE VENT - PRVC
[2022-09-17 10:42] LABS: PLATELET ESTIMATE NORMAL
[2022-09-17] MEDS ORDERED: COLISTIMETHATE SODIUM 150MG/VIAL INH SCH (14:00)
[2022-09-17] MEDS: MEROPENEM 1,000 MG in SODIUM CHLORIDE 0.9% 100 ML IV SCH (14:23)
[2022-09-17] MEDS: HYDRALAZINE 20MG/ML VIAL IV PRN (15:35)
[2022-09-17] MEDS: ENOXAPARIN 150MG/ML SYR SUBCUT SCH (15:36)
[2022-09-17 16:31] LABS: HEPATITIS B SURFACE ANTIGEN NEGATIVE
[2022-09-17] MEDS ORDERED: FENTANYL CITRATE 2,500 MCG in SODIUM CHLORIDE 0.9% 200 ML IV PRN (18:00)
== END 2022-09-17 17:16 | DRG 870 ==
LOC: ER 11:10 → CVICU 12:23 → EDBEDREQ 12:27 → EDBEDREQTM 12:27 → ENRESERV 15:39
PROVIDERS: ADMIT Internal Medicine; ATTEND Internal Medicine
PROC: 0BH17EZ Insertion of Endotracheal Airway into Trachea, Via Natural or Artificial Opening (ICD-10-PCS; principal; 2022-09-07)
PROC: 5A1955Z Respiratory Ventilation, Greater than 96 Consecutive Hours (ICD-10-PCS; 2022-09-07)
PROC: 05HN33Z Insertion of Infusion Device into Left Internal Jugular Vein, Percutaneous Approach (ICD-10-PCS; 2022-09-08)
PROC: 5A1D70Z Performance of Urinary Filtration, Intermittent, Less than 6 Hours Per Day (ICD-10-PCS; 2022-09-08)
PROC: 5A1D70Z Performance of Urinary Filtration, Intermittent, Less than 6 Hours Per Day (ICD-10-PCS; 2022-09-09)
PROC: 05H533Z Insertion of Infusion Device into Right Subclavian Vein, Percutaneous Approach (ICD-10-PCS; 2022-09-10)
PROC: 5A1D70Z Performance of Urinary Filtration, Intermittent, Less than 6 Hours Per Day (ICD-10-PCS; 2022-09-10)
PROC: B546ZZA Ultrasonography of Right Subclavian Vein, Guidance (ICD-10-PCS; 2022-09-10)
PROC: 5A1D70Z Performance of Urinary Filtration, Intermittent, Less than 6 Hours Per Day (ICD-10-PCS; 2022-09-13)
PROC: 4A00X4Z Measurement of Central Nervous Electrical Activity, External Approach (ICD-10-PCS; 2022-09-17)
DX: A41.1 Sepsis due to other specified staphylococcus (principal); E43 Unspecified severe protein-calorie malnutrition; D65 Disseminated intravascular coagulation [defibrination syndrome]; G92.9 Unspecified toxic encephalopathy; J69.0 Pneumonitis due to inhalation of food and vomit; N17.0 Acute kidney failure with tubular necrosis; J96.01 Acute respiratory failure with hypoxia; J96.02 Acute respiratory failure with hypercapnia; R65.21 Severe sepsis with septic shock; K72.00 Acute and subacute hepatic failure without coma; I21.A1 Myocardial infarction type 2; E87.4 Mixed disorder of acid-base balance; Z68.43 Body mass index [BMI] 50.0-59.9, adult; Z99.11 Dependence on respirator [ventilator] status; E66.2 Morbid (severe) obesity with alveolar hypoventilation; N39.0 Urinary tract infection, site not specified; I82.432 Acute embolism and thrombosis of left popliteal vein; G93.1 Anoxic brain damage, not elsewhere classified; I46.9 Cardiac arrest, cause unspecified; F12.90 Cannabis use, unspecified, uncomplicated; Z20.822 Contact with and (suspected) exposure to COVID-19; F10.129 Alcohol abuse with intoxication, unspecified; I10 Essential (primary) hypertension; K74.60 Unspecified cirrhosis of liver; K76.0 Fatty (change of) liver, not elsewhere classified; L89.159 Pressure ulcer of sacral region, unspecified stage; K80.20 Calculus of gallbladder without cholecystitis without obstruction; D75.1 Secondary polycythemia; I95.9 Hypotension, unspecified; E87.5 Hyperkalemia; I16.0 Hypertensive urgency; Y90.4 Blood alcohol level of 80-99 mg/100 ml; Z99.2 Dependence on renal dialysis; Z82.49 Family history of ischemic heart disease and other diseases of the circulatory system
CPT/HCPCS: 31500; 36415; 36556; 36573; 36600; 71045; 76700; 76770; 76937; 78580; 80048; 80053; 80202; 80305; 80320; 81003; 82140; 82375; 82550; 82570; 82805; 82962; 83605; 83735; 83880; 84100; 84132; 84145; 84300; 84484; 85025; 85379; 85384; 86022; 86705; 86709; 86803; 87070; 87340; 87426; 90935; 92950; 93005; 93306; 93970; 94002; 94003; 94640; 95816; 99285; A4565; A6261; C1725; C1752; C9113; J0360; J0692; J0770; J1644; J1650; J1815; J2185; J2248; J2250; J2405; J2543; J2704; J2997; J3010; J3370; J3490; J7030; J7042; J7050; J7060; J7512; G0480